=== PATIENT | male | born 1990 ===

== ENCOUNTER 2016-09-28 15:19 | Emergency (ER) | payer BC, OTHER ==
[2016-09-28 15:24] VITALS: BP 126/90; PULSE 78; RESP 18; TEMP 98.2; O2SAT 99
--- NOTE | 2016-09-28 15:35 | ED PDOC ---
Upper Extremity Pain/Injury Time Seen by Provider: 09/28/16 15:32 Chief Complaint (Nursing): Upper Extremity Problem/Injury Chief Complaint (Provider): Right shoulder injury History Per: Patient History/Exam Limitations: no limitations Onset/Duration Of Symptoms: Hrs (prior to arrival) Current Symptoms Are (Timing): Gone Now Additional Complaint(s): Rosa M is a 25 y/o male who was brought to the ED by EMS after dislocating his right shoulder while stretching his arm backwards. This has happened in the past but usually he is able to pop the shoulder back in place quickly, which he could not today. States that it popped back in after inspector set up and lay out arrived and stabilized the shoulder, and the muscles relaxed. Denies any other medical complaints. PMD: Unknown Past Medical History Reviewed: Historical Data, Nursing Documentation, Vital Signs Vital Signs: Last Vital Signs Temp 98.2 F 09/28/16 15:21 Pulse 78 09/28/16 15:21 Resp 18 09/28/16 15:21 BP 126/90 09/28/16 15:21 Pulse Ox 99 09/28/16 15:21 - Medical History Other PMH: Dislocated right shoulder - Surgical History Surgical History: No Surg Hx - Family History Family History: States: Unknown Family Hx - Social History Current smoker - smoking cessation education provided: No Alcohol: Social Drugs: Denies - Immunization History Hx Tetanus Toxoid Vaccination: No Hx Influenza Vaccination: Yes Hx Pneumococcal Vaccination: No - Home Medications Home Medications: Ambulatory Orders Medication Instructions Recorded Naproxen [Naprosyn] 500 mg PO BID PRN #20 tablet 12/16/15 - Allergies Allergies/Adverse Reactions: Allergies Allergy/AdvReac Type Severity Reaction Status Date / Time No Known Allergies Allergy Verified 12/16/15 07:26 Review of Systems ROS Statement: Except As Marked, All Systems Reviewed And Found Negative Musculoskeletal: Positive for: Shoulder Pain (Dislocation of right shoulder, now resolved) Physical Exam - Reviewed Nursing Documentation Reviewed: Yes Vital Signs Reviewed: Yes - Physical Exam Appears: Positive for: Well, Non-toxic, No Acute Distress Head Exam: Positive for: ATRAUMATIC, NORMAL INSPECTION, NORMOCEPHALIC Skin: Positive for: Normal Color, Warm, DRY Eye Exam: Positive for: Normal appearance ENT: Positive for: Normal ENT Inspection Neck: Positive for: Normal Respiratory: Negative for: Accessory Muscle Use, Respiratory Distress Extremity: Positive for: Normal ROM, Other. Negative for: Tenderness, Deformity , Swelling Neurologic/Psych: Positive for: Alert - ECG O2 Sat by Pulse Oximetry: 99 (RA) Pulse Ox Interpretation: Normal Medical Decision Making Medical Decision Making: Time: 15:32 Initial Impression: R/o fracture Initial Plan: --Pending X-Ray Right Shoulder Scribe Attestation: Documented by Cordelia Angel, acting as a scribe for Pushpa Thornton PA-C Provider Scribe Attestation: All medical record entries made by the Scribe were at my direction and personally dictated by me. I have reviewed the chart and agree that the record accurately reflects my personal performance of the history, physical exam, medical decision making, and the department course for this patient. I have also personally directed, reviewed, and agree with the discharge instructions and disposition. Disposition - Clinical Impression Clinical Impression: Shoulder injury - Patient ED Disposition Is Patient to be Admitted: No Counseled Patient/Family Regarding: Diagnosis, Need For Followup - Disposition Referrals: Ezio Sanford III, MD [Staff Provider] - Disposition: Routine/Home Disposition Time: 16:13 Condition: GOOD Additional Instructions: Please follow-up with orthopedics. Instructions: Shoulder Dislocation (ED)
--- NOTE | 2016-09-28 16:00 | RAD ---
PROCEDURE: Radiographs of the Right Shoulder HISTORY: pain s/p dislocation COMPARISON: Comparisons right shoulder radiographs dated 12/16/2015[facility] FINDINGS: BONES: No evidence of acute displaced fracture nor dislocation. JOINTS: Glenohumeral and acromioclavicular joints preserved. No osteoarthritis. SOFT TISSUES: Normal. OTHER FINDINGS: None. IMPRESSION: Normal radiographNo evidence of acute displaced fracture nor dislocation. Consider repeat radiographs in 5-10 days as most fractures should become radiographically evident in this timeframe. S of the right shoulder.
== END 2016-09-28 16:18 | disposition home or self-care (01) ==
LOC: H.ER 15:19
DX: S49.91XA Unspecified injury of right shoulder and upper arm, initial encounter (principal); X50.9XXA Other and unspecified overexertion or strenuous movements or postures, initial encounter